=== PATIENT | male | born 1935 | race Caucasian/White ===

== ENCOUNTER 2017-08-10 15:42 | Inpatient (IN) | payer MEDICARE, OTHER ==
[2017-08-10] MEDS: IV NORMAL SALINE 1000ML BAG 1,000 ML IV ×2 (16:18→23:03)
[2017-08-10 16:23] LABS: ADD MAN DIFF? NO
[2017-08-10 16:27] LABS: BASO # 0.1 x10^3/uL (0.0-0.2); BASO % 1 % (0-3); EOS % 0 % (0-3); HEMATOCRIT 40.6 % (39.0-53.0); LYMPH # 0.6 x10^3/uL (1.0-4.8); LYMPH % 6 % (24-48); MEAN CORPUSCULAR HEMOGLOBIN 32 pg (25-35); MEAN CORPUSCULAR HGB CONC 34 g/dL (31-37); MEAN CORPUSCULAR VOLUME 92 fL (79-100); MONO # 1.1 x10^3/uL (0.0-1.1); MONO % 12 % (0-9); NEUT % 82 % (31-73); PLATELET COUNT 320 x10^3/uL (140-400); RED BLOOD COUNT 4.42 x10^6/uL (4.30-5.70); RED CELL DISTRIBUTION WIDTH 13.4 % (11.5-14.5); WHITE BLOOD COUNT 9.8 x10^3/uL (4.0-11.0)
[2017-08-10 16:36] LABS: INR 1.1 (0.8-1.1); PARTIAL THROMBOPLASTIN TIME 33 SEC (24-38); PROTHROMBIN TIME PATIENT 13.9 SEC (11.7-14.0)
[2017-08-10 16:55] LABS: ANION GAP 10 (6-14); BLOOD UREA NITROGEN 17 mg/dL (8-26); BUN/CREATININE RATIO 19 (6-20); CALCIUM 9.1 mg/dL (8.5-10.1); CARBON DIOXIDE 26 mmol/L (21-32); CHLORIDE 102 mmol/L (98-107); CREATININE 0.9 mg/dL (0.7-1.3); GLUCOSE 97 mg/dL (70-99); POTASSIUM 4.4 mmol/L (3.5-5.1); SODIUM 138 mmol/L (136-145)
[2017-08-10 17:00] LABS: LACTIC ACID 1.3 mmol/L (0.4-2.0)
[2017-08-10 17:01] LABS: SALIC < 2.8 mg/dL (2.8-20.0)
[2017-08-10 17:02] LABS: TROPONINI < 0.017 ng/mL (0.000-0.055)
[2017-08-10 17:02] LABS: ACETAMIN < 2 mcg/ml (10-30); ALBUMIN 3.2 g/dL (3.4-5.0); ALBUMIN/GLOBULIN RATIO 0.7 (1.0-1.7); ALK PHOS 76 U/L (46-116); ALT (SGPT) 10 U/L (16-63); AST (SGOT) 17 U/L (15-37); LIPASE 52 U/L (73-393); MAGNESIUM 2.1 mg/dL (1.8-2.4); TOTAL BILIRUBIN 0.5 mg/dL (0.2-1.0); TOTAL PROTEIN 7.7 g/dL (6.4-8.2)
[2017-08-10 17:05] LABS: NT-PRO BNP 190 pg/mL (0-449)
[2017-08-10 17:07] LABS: THYROID STIM HORMONE (TSH) 20.209 uIU/mL (0.358-3.74)
[2017-08-10] MEDS: IOHEXOL 300 MG/ML 100ML VIAL. IV (17:15)
[2017-08-10] MEDS ORDERED: CONTRAST GIVEN MC (17:15)
[2017-08-10 17:23] LABS: INFLUENZA A PATIENT POSITIVE (NEGATIVE); INFLUENZA B PATIENT NEGATIVE (NEGATIVE); OBC FLU VALID
[2017-08-10] MEDS: HALOPERIDOL LACTATE 5 MG/ML VIAL. IVP (17:56)
[2017-08-10] MEDS: OSELTAMIVIR 75 MG CAPSULE PO (18:47)
[2017-08-10 18:50] LABS: BILIRUBIN,URINE NEGATIVE (NEG); CLARITY,URINE CLEAR; COLOR,URINE YELLOW; GLUCOSE,URINE NEGATIVE (NEG); NITRITE,URINE NEGATIVE (NEG); PH,URINE 7.5; PROTEIN,URINE NEGATIVE (NEG-TRACE); UROBILINOGEN,URINE 0.2 mg/dL (0.2 mg/dL)
[2017-08-10 19:01] LABS: BACTERIA,URINE 0 /HPF (0-FEW); RBC,URINE OCC /HPF (0-2); SQUAMOUS EPITHELIAL CELL,UR OCC /LPF; WBC,URINE 0 /HPF (0-4)
[2017-08-10] MEDS ORDERED: ONDANSETRON PF 4 MG/2 ML VIAL. IV (19:15)
[2017-08-10] MEDS: IPRATRPIUM/ALBUTEROL 0.5/2.5MG 3 ML NEBU. NEB (20:37)
[2017-08-10] MEDS: ACETAMINOPHEN 325 MG TABLET. PO (23:03)
[2017-08-11] MEDS: IV NORMAL SALINE 1000ML BAG 1,000 ML IV ×3 (06:51→15:15)
[2017-08-11] MEDS: IPRATRPIUM/ALBUTEROL 0.5/2.5MG 3 ML NEBU. NEB ×4 (07:08→19:48)
[2017-08-11 07:58] LABS: BASO # 0.1 x10^3/uL (0.0-0.2); BASO % 1 % (0-3); EOS % 0 % (0-3); LYMPH # 1.8 x10^3/uL (1.0-4.8); LYMPH % 20 % (24-48); MEAN CORPUSCULAR HEMOGLOBIN 31 pg (25-35); MEAN CORPUSCULAR HGB CONC 34 g/dL (31-37); MEAN CORPUSCULAR VOLUME 92 fL (79-100); MONO # 2.1 x10^3/uL (0.0-1.1); MONO % 24 % (0-9); NEUT # 5.1 x10^3uL (1.8-7.7); NEUT % 56 % (31-73); PLATELET COUNT 275 x10^3/uL (140-400); RED BLOOD COUNT 4.45 x10^6/uL (4.30-5.70); RED CELL DISTRIBUTION WIDTH 13.8 % (11.5-14.5)
[2017-08-11 08:03] LABS: ADD MAN DIFF? YES
[2017-08-11 08:09] LABS: ANION GAP 11 (6-14); BLOOD UREA NITROGEN 16 mg/dL (8-26); CALCIUM 8.4 mg/dL (8.5-10.1); CARBON DIOXIDE 24 mmol/L (21-32); CHLORIDE 104 mmol/L (98-107); CREATININE 0.8 mg/dL (0.7-1.3); GFR 92.8; GLUCOSE 96 mg/dL (70-99); POTASSIUM 3.7 mmol/L (3.5-5.1); SODIUM 139 mmol/L (136-145)
[2017-08-11] MEDS: OSELTAMIVIR 75 MG CAPSULE PO ×2 (09:00→20:04)
[2017-08-11] MEDS: LEVOTHYROXINE 25 MCG TABLET. PO (09:28)
[2017-08-11] MEDS: DONEPEZIL HCL 5 MG TABLET. PO (09:28)
[2017-08-11 12:13] LABS: % BANDS 20 % (0-9); % LYMPHS 24 % (24-48); % MONOS 20 % (0-10); % SEGS 36 % (35-66); PLT ESTIMATE ADEQUATE (ADEQUATE)
[2017-08-11] MEDS ORDERED: ONDANSETRON PF 4 MG/2 ML VIAL. IV (19:15)
[2017-08-11] MEDS: LEVOTHYROXINE SODIUM IVP (20:03)
[2017-08-11] MEDS: NORMAL SALINE IVP (20:03)
[2017-08-12 04:41] LABS: ADD MAN DIFF? NO
[2017-08-12 04:46] LABS: BASO # 0.1 x10^3/uL (0.0-0.2); BASO % 1 % (0-3); EOS % 0 % (0-3); LYMPH # 1.9 x10^3/uL (1.0-4.8); LYMPH % 24 % (24-48); MEAN CORPUSCULAR HEMOGLOBIN 30 pg (25-35); MEAN CORPUSCULAR HGB CONC 33 g/dL (31-37); MEAN CORPUSCULAR VOLUME 94 fL (79-100); MONO # 1.4 x10^3/uL (0.0-1.1); MONO % 17 % (0-9); NEUT # 4.7 x10^3uL (1.8-7.7); NEUT % 58 % (31-73); PLATELET COUNT 268 x10^3/uL (140-400); RED BLOOD COUNT 4.59 x10^6/uL (4.30-5.70); RED CELL DISTRIBUTION WIDTH 13.9 % (11.5-14.5); WHITE BLOOD COUNT 8.1 x10^3/uL (4.0-11.0)
[2017-08-12 05:13] LABS: ANION GAP 10 (6-14); BLOOD UREA NITROGEN 17 mg/dL (8-26); CALCIUM 8.5 mg/dL (8.5-10.1); CARBON DIOXIDE 25 mmol/L (21-32); CHLORIDE 106 mmol/L (98-107); CREATININE 0.7 mg/dL (0.7-1.3); GFR 108.2; GLUCOSE 74 mg/dL (70-99); POTASSIUM 3.9 mmol/L (3.5-5.1); SODIUM 141 mmol/L (136-145)
[2017-08-12 06:44] LABS: SEDIMENTATION RATE 29 (0-15)
[2017-08-12] MEDS: DONEPEZIL HCL 5 MG TABLET. PO (09:05)
[2017-08-12] MEDS: OSELTAMIVIR 75 MG CAPSULE PO ×2 (09:05→20:40)
[2017-08-12] MEDS ORDERED: LIDO:MAALOX:BENADRYL 1:1:1 180 ML BOTTLE. PO (11:00)
[2017-08-12] MEDS: IV NORMAL SALINE 1000ML BAG 1,000 ML IV ×2 (11:21→14:40)
[2017-08-12] MEDS: NORMAL SALINE IVP (11:22)
[2017-08-12] MEDS: LEVOTHYROXINE SODIUM IVP (11:22)
[2017-08-12] MEDS: FAMOTIDINE 20 MG/2 ML VIAL IVP (12:24)
[2017-08-12] MEDS: ENOXAPARIN 40 MG/0.4 ML SYRINGE. SQ (12:25)
[2017-08-12] MEDS: FAMOTIDINE 20 MG TABLET. PO (20:40)
[2017-08-13 05:22] LABS: ADD MAN DIFF? NO
[2017-08-13 05:31] LABS: BASO # 0.1 x10^3/uL (0.0-0.2); BASO % 1 % (0-3); EOS # 0.1 x10^3/uL (0.0-0.7); EOS % 1 % (0-3); HEMOGLOBIN 14.2 g/dL (13.0-17.5); LYMPH # 1.6 x10^3/uL (1.0-4.8); LYMPH % 21 % (24-48); MEAN CORPUSCULAR HEMOGLOBIN 31 pg (25-35); MEAN CORPUSCULAR HGB CONC 34 g/dL (31-37); MEAN CORPUSCULAR VOLUME 93 fL (79-100); MONO % 13 % (0-9); NEUT # 5.1 x10^3uL (1.8-7.7); NEUT % 65 % (31-73); PLATELET COUNT 259 x10^3/uL (140-400); RED BLOOD COUNT 4.54 x10^6/uL (4.30-5.70); RED CELL DISTRIBUTION WIDTH 13.6 % (11.5-14.5); WHITE BLOOD COUNT 7.9 x10^3/uL (4.0-11.0)
[2017-08-13 05:48] LABS: ANION GAP 8 (6-14); BLOOD UREA NITROGEN 15 mg/dL (8-26); CALCIUM 8.2 mg/dL (8.5-10.1); CARBON DIOXIDE 26 mmol/L (21-32); CHLORIDE 106 mmol/L (98-107); CREATININE 0.6 mg/dL (0.7-1.3); GFR 129.3; GLUCOSE 75 mg/dL (70-99); POTASSIUM 3.6 mmol/L (3.5-5.1); SODIUM 140 mmol/L (136-145)
[2017-08-13] MEDS: LEVOTHYROXINE 25 MCG TABLET. PO (06:09)
[2017-08-13] MEDS: OSELTAMIVIR 75 MG CAPSULE PO ×2 (09:45→20:52)
[2017-08-13] MEDS: DONEPEZIL HCL 5 MG TABLET. PO (09:45)
[2017-08-13] MEDS: FAMOTIDINE 20 MG TABLET. PO ×2 (09:45→20:56)
[2017-08-13] MEDS: ENOXAPARIN 40 MG/0.4 ML SYRINGE. SQ (12:10)
[2017-08-13] MEDS: TERBINAFINE 250 MG TABLET. PO (17:36)
[2017-08-14 04:22] LABS: ADD MAN DIFF? NO
[2017-08-14 04:37] LABS: BASO % 1 % (0-3); EOS # 0.1 x10^3/uL (0.0-0.7); EOS % 2 % (0-3); HEMATOCRIT 43.1 % (39.0-53.0); HEMOGLOBIN 14.6 g/dL (13.0-17.5); LYMPH # 1.7 x10^3/uL (1.0-4.8); LYMPH % 22 % (24-48); MEAN CORPUSCULAR HEMOGLOBIN 31 pg (25-35); MEAN CORPUSCULAR HGB CONC 34 g/dL (31-37); MEAN CORPUSCULAR VOLUME 92 fL (79-100); MONO % 13 % (0-9); NEUT % 64 % (31-73); PLATELET COUNT 275 x10^3/uL (140-400); RED BLOOD COUNT 4.68 x10^6/uL (4.30-5.70); RED CELL DISTRIBUTION WIDTH 13.1 % (11.5-14.5); WHITE BLOOD COUNT 7.9 x10^3/uL (4.0-11.0)
[2017-08-14 04:56] LABS: ANION GAP 10 (6-14); BLOOD UREA NITROGEN 15 mg/dL (8-26); CARBON DIOXIDE 25 mmol/L (21-32); CHLORIDE 104 mmol/L (98-107); CREATININE 0.7 mg/dL (0.7-1.3); GFR 108.2; GLUCOSE 67 mg/dL (70-99); POTASSIUM 3.4 mmol/L (3.5-5.1); SODIUM 139 mmol/L (136-145)
[2017-08-14] MEDS: LEVOTHYROXINE 25 MCG TABLET. PO (05:35)
[2017-08-14] MEDS: TERBINAFINE 250 MG TABLET. PO (07:39)
[2017-08-14] MEDS: FAMOTIDINE 20 MG TABLET. PO ×2 (07:40→21:15)
[2017-08-14] MEDS: OSELTAMIVIR 75 MG CAPSULE PO ×2 (07:40→21:15)
[2017-08-14] MEDS: DONEPEZIL HCL 5 MG TABLET. PO (07:40)
[2017-08-14 08:41] LABS: VITAMIN-B12 1103 pg/mL (247-911)
[2017-08-14 08:41] LABS: FOLATE 23.41 ng/ml (3.2-20.0)
[2017-08-14] MEDS: ENOXAPARIN 40 MG/0.4 ML SYRINGE. SQ (14:51)
[2017-08-14] MEDS ORDERED: MAGNESIUM HYDROXIDE 2,400 MG/30 ML ORAL.SUSP. PO (15:00)
[2017-08-14] MEDS ORDERED: BISACODYL 10 MG SUPP.RECT. PR (15:00)
[2017-08-14] MEDS ORDERED: LORazepam 1 MG TABLET PO (16:00)
[2017-08-14] MEDS: POLYETHYLENE GLYCOL 3350 17 GM PACKET. PO (16:12)
[2017-08-14] MEDS: MAGNESIUM HYDROXIDE 2,400 MG/30 ML ORAL.SUSP. PO (16:12)
[2017-08-14] MEDS: BISACODYL 10 MG SUPP.RECT. PR (16:13)
[2017-08-14] MEDS: LORazepam 1 MG TABLET PO (16:17)
[2017-08-14] MEDS: HALOPERIDOL 2 MG TABLET. PO (21:15)
[2017-08-14] MEDS: LORazepam 0.5 MG TABLET PO (22:19)
[2017-08-15 04:56] LABS: ADD MAN DIFF? NO
[2017-08-15 04:59] LABS: BASO % 0 % (0-3); EOS # 0.1 x10^3/uL (0.0-0.7); EOS % 1 % (0-3); HEMATOCRIT 41.9 % (39.0-53.0); HEMOGLOBIN 14.3 g/dL (13.0-17.5); LYMPH % 22 % (24-48); MEAN CORPUSCULAR HEMOGLOBIN 31 pg (25-35); MEAN CORPUSCULAR HGB CONC 34 g/dL (31-37); MEAN CORPUSCULAR VOLUME 91 fL (79-100); MONO # 1.2 x10^3/uL (0.0-1.1); MONO % 14 % (0-9); NEUT # 5.7 x10^3uL (1.8-7.7); NEUT % 63 % (31-73); PLATELET COUNT 282 x10^3/uL (140-400); RED BLOOD COUNT 4.59 x10^6/uL (4.30-5.70); RED CELL DISTRIBUTION WIDTH 13.1 % (11.5-14.5); WHITE BLOOD COUNT 9.1 x10^3/uL (4.0-11.0)
[2017-08-15] MEDS: LEVOTHYROXINE 25 MCG TABLET. PO (05:41)
[2017-08-15 05:45] LABS: ANION GAP 13 (6-14); BLOOD UREA NITROGEN 16 mg/dL (8-26); CALCIUM 8.9 mg/dL (8.5-10.1); CARBON DIOXIDE 23 mmol/L (21-32); CHLORIDE 104 mmol/L (98-107); CREATININE 0.7 mg/dL (0.7-1.3); GFR 108.2; GLUCOSE 84 mg/dL (70-99); POTASSIUM 3.4 mmol/L (3.5-5.1); SODIUM 140 mmol/L (136-145)
[2017-08-15] MEDS: POLYETHYLENE GLYCOL 3350 17 GM PACKET. PO (10:21)
[2017-08-15] MEDS: TERBINAFINE 250 MG TABLET. PO (10:22)
[2017-08-15] MEDS: FAMOTIDINE 20 MG TABLET. PO ×2 (10:22→19:39)
[2017-08-15] MEDS: DONEPEZIL HCL 5 MG TABLET. PO (10:22)
[2017-08-15] MEDS: OSELTAMIVIR 75 MG CAPSULE PO (10:22)
[2017-08-15] MEDS: ENOXAPARIN 40 MG/0.4 ML SYRINGE. SQ (13:47)
[2017-08-15] MEDS: QUEtiapine 50 MG TAB.ER.24H. PO (13:47)
[2017-08-16 04:34] LABS: ADD MAN DIFF? NO
[2017-08-16 04:41] LABS: BASO # 0.1 x10^3/uL (0.0-0.2); BASO % 1 % (0-3); EOS # 0.2 x10^3/uL (0.0-0.7); EOS % 2 % (0-3); HEMATOCRIT 43.8 % (39.0-53.0); HEMOGLOBIN 14.8 g/dL (13.0-17.5); LYMPH # 1.8 x10^3/uL (1.0-4.8); LYMPH % 18 % (24-48); MEAN CORPUSCULAR HEMOGLOBIN 31 pg (25-35); MEAN CORPUSCULAR HGB CONC 34 g/dL (31-37); MEAN CORPUSCULAR VOLUME 91 fL (79-100); MONO # 1.3 x10^3/uL (0.0-1.1); MONO % 13 % (0-9); NEUT # 6.6 x10^3uL (1.8-7.7); NEUT % 66 % (31-73); PLATELET COUNT 296 x10^3/uL (140-400); RED BLOOD COUNT 4.79 x10^6/uL (4.30-5.70); RED CELL DISTRIBUTION WIDTH 13.3 % (11.5-14.5)
[2017-08-16 05:02] LABS: ANION GAP 14 (6-14); BLOOD UREA NITROGEN 16 mg/dL (8-26); CARBON DIOXIDE 23 mmol/L (21-32); CHLORIDE 104 mmol/L (98-107); CREATININE 0.7 mg/dL (0.7-1.3); GFR 108.2; GLUCOSE 74 mg/dL (70-99); POTASSIUM 3.6 mmol/L (3.5-5.1); SODIUM 141 mmol/L (136-145)
[2017-08-16] MEDS: TERBINAFINE 250 MG TABLET. PO (10:08)
[2017-08-16] MEDS: LEVOTHYROXINE 50 MCG TABLET PO (10:08)
[2017-08-16] MEDS: DONEPEZIL HCL 5 MG TABLET. PO (10:08)
[2017-08-16] MEDS: QUEtiapine 50 MG TAB.ER.24H. PO (10:08)
[2017-08-16] MEDS: POLYETHYLENE GLYCOL 3350 17 GM PACKET. PO (10:08)
[2017-08-16] MEDS: FAMOTIDINE 20 MG TABLET. PO ×3 (10:08→20:35)
[2017-08-16] MEDS: ENOXAPARIN 40 MG/0.4 ML SYRINGE. SQ (10:14)
[2017-08-17 05:18] LABS: ADD MAN DIFF? NO
[2017-08-17 05:21] LABS: BASO # 0.1 x10^3/uL (0.0-0.2); BASO % 1 % (0-3); EOS # 0.2 x10^3/uL (0.0-0.7); EOS % 2 % (0-3); HEMATOCRIT 42.9 % (39.0-53.0); HEMOGLOBIN 14.5 g/dL (13.0-17.5); LYMPH # 1.8 x10^3/uL (1.0-4.8); LYMPH % 17 % (24-48); MEAN CORPUSCULAR HEMOGLOBIN 31 pg (25-35); MEAN CORPUSCULAR HGB CONC 34 g/dL (31-37); MEAN CORPUSCULAR VOLUME 91 fL (79-100); MONO # 1.3 x10^3/uL (0.0-1.1); MONO % 13 % (0-9); NEUT # 7.2 x10^3uL (1.8-7.7); NEUT % 67 % (31-73); PLATELET COUNT 332 x10^3/uL (140-400); RED CELL DISTRIBUTION WIDTH 13.3 % (11.5-14.5); WHITE BLOOD COUNT 10.7 x10^3/uL (4.0-11.0)
[2017-08-17 06:06] LABS: ANION GAP 14 (6-14); BLOOD UREA NITROGEN 21 mg/dL (8-26); CALCIUM 9.1 mg/dL (8.5-10.1); CARBON DIOXIDE 23 mmol/L (21-32); CHLORIDE 105 mmol/L (98-107); CREATININE 0.8 mg/dL (0.7-1.3); GFR 92.8; GLUCOSE 77 mg/dL (70-99); POTASSIUM 3.6 mmol/L (3.5-5.1); SODIUM 142 mmol/L (136-145)
[2017-08-17] MEDS: TERBINAFINE 250 MG TABLET. PO (08:31)
[2017-08-17] MEDS: LEVOTHYROXINE 50 MCG TABLET PO (08:31)
[2017-08-17] MEDS: DONEPEZIL HCL 5 MG TABLET. PO (08:31)
[2017-08-17] MEDS: POLYETHYLENE GLYCOL 3350 17 GM PACKET. PO (08:31)
[2017-08-17] MEDS: FAMOTIDINE 20 MG TABLET. PO (08:31)
[2017-08-17] MEDS: ENOXAPARIN 40 MG/0.4 ML SYRINGE. SQ (12:17)
== END 2017-08-17 16:28 | DRG 871 ==
LOC: ER 15:42 → ED HOLD 18:16 → 6 SOUTH 22:00
DX: A41.9 Sepsis, unspecified organism (principal); G93.41 Metabolic encephalopathy; I47.1 Supraventricular tachycardia; R13.10 Dysphagia, unspecified; B35.1 Tinea unguium; J10.1 Influenza due to other identified influenza virus with other respiratory manifestations; G30.9 Alzheimer's disease, unspecified; F02.80 Dementia in other diseases classified elsewhere, unspecified severity, without behavioral disturbance, psychotic disturbance, mood disturbance, and anxiety; E03.9 Hypothyroidism, unspecified; K80.20 Calculus of gallbladder without cholecystitis without obstruction; Z88.0 Allergy status to penicillin; Z82.49 Family history of ischemic heart disease and other diseases of the circulatory system; Z90.49 Acquired absence of other specified parts of digestive tract
CPT/HCPCS: 36415; 51701; 70450; 71045; 74177; 80048; 80053; 80329; 81001; 82306; 82607; 82746; 83605; 83690; 83735; 83880; 84443; 84484; 85007; 85025; 85610; 85651; 85730; 87040; 87804; 87804-59; 92526-GN; 92610-GN; 93005; 93306; 94640; 95816; 96361; 96374; 96375; 97116-GP; 97163-GP; 97166-GO; 97530-GO; 97530-GP; 97535-GO; 99285; 99285-25; J1630; J1650; J2060; J7030; J7620; S0028